=== PATIENT | male | born 1980 | race African-American/Black ===

== ENCOUNTER 2022-07-02 00:35 | Emergency (ER) | payer SELFPAY ==
[~2022-07-02] VITALS: Ht 175.3 cm; Wt 70.3 kg
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
[2022-07-02] MEDS ORDERED: SULFAMETH/TRIMETH 800/160 MG 1 UDTAB TABLET ONE (00:57)
[2022-07-02] MEDS ORDERED: SULFAMETH/TRIMETH 800/160 MG 1 UDTAB TABLET PO ONE (01:00)
--- NOTE | 2022-07-02 01:11 | NUR ---
XRAY AT BEDSIDE
[2022-07-02] MEDS ORDERED: TDAP [DIPH/PERTUSSIS/TET] 0.5 ML VIAL IM ONE ×2 (01:28→01:30)
[2022-07-02 01:59] VITALS: BP 121/72
[2022-07-02] MEDS ORDERED: IBUPROFEN 600 MG TABLET PO ONE (02:00)
[2022-07-02] MEDS ORDERED: IBUPROFEN 600 MG TABLET ONE (02:00)
--- NOTE | 2022-07-02 02:00 | NUR ---
Patient discharged to home in stable condition. Written and verbal after care instructions given. Patient verbalizes understanding of instruction.
== END 2022-07-02 02:01 | disposition home or self-care (01) ==
LOC: ER 00:40
DX: S71.101A Unspecified open wound, right thigh, initial encounter (principal); Z60.2 Problems related to living alone; Z59.00 Homelessness unspecified; X58.XXXA Exposure to other specified factors, initial encounter; Y93.89 Activity, other specified; Y92.89 Other specified places as the place of occurrence of the external cause; Y99.8 Other external cause status
CPT/HCPCS: 73552; 90715